=== PATIENT | male | born 1995 | race Caucasian/White ===

== ENCOUNTER → 2018-07-26 | Outpatient (CLI) | payer BC ==
--- NOTE | 2018-07-31 21:51 | SLEEP ---
[facility] [address] [place] [address] SLEEP STUDY REPORT Name: LUISAJUAN ANTONIO ECHEVERRIA Room: [facility]#: [id number] Admission: 07/26/18 Attend Phys: Gretchen Mendez Discharge: Date of : 89 Report #: [id number] THIS REPORT FOR: //name// CC: Perez Berger DO This study has been reviewed in its entirety by a board certified sleep specialist DATE OF SERVICE: 07/28/2018 HOME SLEEP STUDY ATTENDING PHYSICIAN: Perez Berger DO. The patient is 23 years old who weighs 165 pounds with a BMI of 20.1. The patient underwent home sleep study performed at [facility]. Total recording time was 421 minutes. During the night study, the patient had 5 central apneas, 7 obstructive apneas, no mixed apneas and 1 hypopnea. The patient's apnea-hypopnea index was only 1.9 per hour. Nocturnal oximetry study revealed an average oxygen saturation 95% with a lowest of 83%. Only 2.4 minutes were spent in oxygen saturation less than 90%. EKG monitoring revealed mean heart rate of 65 beats per minute with a maximum 106 beats per minute. IMPRESSION: 1. No clinically significant sleep disordered breathing. The patient's apnea-hypopnea index for the entire night was 1.9 per hour. 2. No clinically significant nocturnal hypoxia. RECOMMENDATIONS: 1. The patient does not meet the criteria for CPAP initiation. The patient does have moderate subjective hypersomnia with an [place] score of 11. If clinical suspicion for other disorders, such as narcolepsy or idiopathic hypersomnia is high, then the patient would benefit from multiple sleep latency tests. 2. Avoid [employer] [place] [address] SLEEP STUDY REPORT Name: JUAN ANTONIO MUELLER Room: [facility]#: [id number] Admission: 07/26/18 Attend Phys: Gretchen Mendez Discharge: Date of : 89 Report #: [id number] 3. Cautioned regarding driving until the patient's hypersomnia is resolved with the above recommendations. <ELECTRONICALLY SIGNED> By: Juarez Vanegas MD 07/31/18 [id number] Vanegas MD /[email or web address]
== END ==
LOC: M.SLEEPLAB 13:00
DX: G47.10 Hypersomnia, unspecified (principal); Z82.49 Family history of ischemic heart disease and other diseases of the circulatory system